=== PATIENT | female | born 1980 | race African-American/Black ===

== ENCOUNTER 2018-06-18 03:06 | Inpatient (IN) | payer OTHER ==
[~2018-06-18 03:06] MED LIST: Morphine PF 1 MG/ML Amp IVPUSH ONE; Ondansetron 4 MG/2 ML SDV IVPUSH ONE; Oxytocin 10 Units/1 ML SDV IV ONE; Phenylephrine/Normal Saline 100 MCG/ML 10 ML Syringe IV ONE; ceFAZolin 2 GM in Premix Bag 1 BAG IV ONE; ePHEDrine 50 MG/ML SDV IV ONE
[2018-06-18] MEDS ORDERED: Citric Acid/Sodium Citrate Solution 30 ML Cup PO ONE (03:30)
[2018-06-18] MEDS ORDERED: Sodium Chloride 0.9% 2.5 ML Syringe FLUSH PRN (03:30)
[2018-06-18] MEDS ORDERED: Sodium Chloride 0.9% 10 ML Syringe FLUSH PRN (03:30)
[2018-06-18] MEDS ORDERED: Lactated Ringers 1,000 ML IV SCH ×2 (03:30→05:00)
[2018-06-18] MEDS ORDERED: ceFAZolin 2 GM in Premix Bag 1 BAG IV ONE (03:30)
[2018-06-18] MEDS ORDERED: Oxytocin/0.9 % Sodium Chloride 30 UNIT/500 ML BAG IV SCH (03:30)
[2018-06-18] MEDS ORDERED: Octyl 2-Cyanoacrylate 1 Tube ONE (03:59)
--- NOTE | 2018-06-18 03:59 | PCM.LDHP ---
L&D History of Present Illness - General Date of Service: 06/18/18 Admit Problem/Dx: Patient Status Order with Admit Dx/Problem 06/18/18 03:30 Patient Status [ADT] Routine Admission Diagnosis/Problem Admission Diagnosis/Problem - planned Source of Information: Patient History Limitations: Reports: No Limitations - History of Present Illness Improves with: Reports: None Worsens with: Reports: None Associated Symptoms: Reports: N - Related Data Allergies/Adverse Reactions: Allergies Allergy/AdvReac Type Severity Reaction Status Date / Time No Known Allergies Allergy Verified 06/17/18 11:36 Home Medications: Home Meds Vit W-Ca,Fe,FA(<1 mg) [ Vitamins] 1 tab PO DAILY 06/17/18 [ History] H&P Review of Systems - Review of Systems: Review Of Systems: See Below General: Reports: No Symptoms HEENT: Reports: No Symptoms Pulmonary: Reports: No Symptoms Cardiovascular: Reports: No Symptoms Gastrointestinal: Reports: No Symptoms Genitourinary: Reports: No Symptoms Musculoskeletal: Reports: No Symptoms Skin: Reports: No Symptoms Psychiatric: Reports: No Symptoms Neurological: Reports: No Symptoms Hematologic/Lymphatic: Reports: No Symptoms Immunologic: Reports: No Symptoms L&D Exam - Exam Exam: See Below - OB Specific Fundal Height In cm: 38 Contraction Intensity: Moderate Movement: Active Heart Tones: Present Presentation: Vertex - Live Score Live Score Cervix Position: Anterior Live Score Consistency: Soft Live Score Effacement: 51-70% Live Score Dilation: > 5 cm Live Score Infant's Station: -1 ,0 Live Score Total: 11 - Exam General: Alert, Oriented HEENT: PERRLA, Conjunctiva Clear, EACs Clear, EOMI, Hearing Intact, Mucosa Moist & Pender, Nares Patent, Normal Nasal Septum, Posterior Pharynx Clear, TMs Clear Neck: Supple, Trachea Midline Lungs: Clear to Auscultation, Normal Respiratory Effort Cardiovascular: Regular Rate, Regular Rhythm GI/Abdominal Exam: Normal Bowel Sounds, Soft, Non-Tender, No Organomegaly, No Distention, No Abnormal Bruit, No Mass, Pelvis Stable Rectal Exam: Normal Exam, Normal Rectal Tone Genitourinary: Normal external exam, Normal bimanual exam, Normal speculum exam Back Exam: Normal Inspection, Full Range of Motion Extremities: Normal Inspection, Normal Range of Motion, Non-Tender, No Pedal Edema, Normal Capillary Refill Skin: Warm, Dry, Intact Neurological: Cranial Nerves Intact, Reflexes Equal Bilateral Psychiatric: Alert, Normal Affect, Normal Mood - Patient Data Lab Results Last 24 hrs: Laboratory Results - last 24 hr 06/18/18 Range/Units 03:38 WBC 10.38 (4.0-11.0) K/uL RBC 4.64 (4.30-5.90) M/uL Hgb 12.4 (12.0-16.0) g/dL Hct 37.2 (36.0-46.0) % MCV 80.2 (80.0-98.0) fL MCH 26.7 L (27.0-32.0) pg MCHC 33.3 (31.0-37.0) g/dL RDW Std Deviation 41.5 (28.0-62.0) fl RDW Coeff of Juan 14 (11.0-15.0) % Plt Count 128 L (150-400) K/uL MPV 11.50 (7.40-12.00) fL Nucleated RBC % 0.0 /100WBC Nucleated RBCs # 0 K/uL Result Diagrams: 06/18/18 03:38 Problem List Initiated/Reviewed/Updated: Yes Orders Last 24hrs: Active Orders 24 hr Category Date Time Status Patient Status [ADT] Routine ADT 06/18/18 03:30 Active Non Stress Test [RC] PER UNIT ROUTINE Care 06/18/18 03:30 Active Notify Provider Vital Signs [RC] PRN Care 06/18/18 03:30 Active Procedure Site Prep Instruct [RC] ASDIRECTED Care 06/18/18 03:30 Active Up ad Marya [RC] ASDIRECTED Care 06/18/18 03:30 Active Verify Patient Consent Obtain [RC] ASDIRECTED Care 06/18/18 03:30 Active Vital Signs [RC] PER UNIT ROUTINE Care 06/18/18 03:30 Active TYPE AND SCREEN [BBK] Routine Lab 06/18/18 03:38 Received Lactated Ringers [Ringers, Lactated] 1,000 ml Med 06/18/18 03:30 Active IV BOLUS Oxytocin/0.9 % Sodium Chloride [Oxytocin 30 Unit/500 ML Med 06/18/18 03:30 Active -NS] 30 unit in 500 ml IV TITRATE Sodium Chloride 0.9% [Saline Flush] Med 06/18/18 03:30 Active 10 ml FLUSH ASDIRECTED PRN Sodium Chloride 0.9% [Saline Flush] Med 06/18/18 03:30 Active 2.5 ml FLUSH ASDIRECTED PRN ceFAZolin [Ancef] 2 gm Med 06/18/18 03:30 Active Premix Bag 1 bag IV ONETIME Peripheral IV Insertion Adult [OM.PC] Routine Oth 06/18/18 03:30 Ordered Schedule Procedure [COMM] Per Unit Routine Oth 06/18/18 03:30 Ordered Resuscitation Status Routine Resus Stat 06/18/18 03:30 Ordered Medication Orders Cefazolin Sodium/Dextrose 2 gm (/ Premix) 50 mls @ 100 mls/hr IV ONETIME ONE Stop: 06/18/18 03:59 Lactated Ringer's (Ringers, Lactated) 1,000 mls @ 500 mls/hr IV BOLUS FATUMA Last Admin: 06/18/18 03:49 Dose: 999 mls/hr Oxytocin/Sodium Chloride (Oxytocin 30 Unit/500 Ml-Ns) 30 unit in 500 mls @ 250 mls/hr IV TITRATE FATUMA Sodium Chloride (Saline Flush) 10 ml FLUSH ASDIRECTED PRN PRN Reason: Keep Vein Open Sodium Chloride (Saline Flush) 2.5 ml FLUSH ASDIRECTED PRN PRN Reason: Keep Vein Open Assessment/Plan Comment:: Elective repeat C/section in active labor.
--- NOTE | 2018-06-18 04:20 | PCM.PREANE ---
Preanesthetic Assessment - Anesthesia/Transfusion/Family Hx Anesthesia History: Prior Anesthesia Without Reaction Family History of Anesthesia Reaction: No Transfusion History: Unknown - Review of Systems General: No Symptoms Pulmonary: No Symptoms Cardiovascular: No Symptoms Gastrointestinal: No Symptoms Neurological: No Symptoms Other: Reports: None - Physical Assessment NPO Status Date: 06/18/18 NPO Status Time: 01:00 ASA Class: 2E Mental Status: Alert & Oriented x3 Airway Class: Mallampati = 2 Dentition: Reports: Normal Dentition Thyro-Mental Finger Breadths: 2 Mouth Opening Finger Breadths: 2 ROM/Head Extension: Full Lungs: Clear to Auscultation, Normal Respiratory Effort Cardiovascular: Regular Rate, Regular Rhythm - Lab Values: Laboratory Last Values WBC 10.38 K/uL (4.0-11.0) 06/18/18 03:38 RBC 4.64 M/uL (4.30-5.90) 06/18/18 03:38 Hgb 12.4 g/dL (12.0-16.0) 06/18/18 03:38 Hct 37.2 % (36.0-46.0) 06/18/18 03:38 MCV 80.2 fL (80.0-98.0) 06/18/18 03:38 MCH 26.7 pg (27.0-32.0) L 06/18/18 03:38 MCHC 33.3 g/dL (31.0-37.0) 06/18/18 03:38 RDW Std Deviation 41.5 fl (28.0-62.0) 06/18/18 03:38 RDW Coeff of Juan 14 % (11.0-15.0) 06/18/18 03:38 Plt Count 128 K/uL (150-400) L 06/18/18 03:38 MPV 11.50 fL (7.40-12.00) 06/18/18 03:38 Nucleated RBC % 0.0 /100WBC 06/18/18 03:38 Nucleated RBCs # 0 K/uL 06/18/18 03:38 Blood Type AB POSITIVE 06/18/18 03:38 - Allergies Allergies/Adverse Reactions: Allergies Allergy/AdvReac Type Severity Reaction Status Date / Time No Known Allergies Allergy Verified 06/17/18 11:36 - Acknowledgements Anesthesia Type Planned: Spinal (with Duramorph) Pt an Appropriate Candidate for the Planned Anesthesia: Yes Alternatives and Risks of Anesthesia Discussed w Pt/Guardian: Yes Pt/Guardian Understands and Agrees with Anesthesia Plan: Yes PreAnesthesia Questionnaire HEENT History: Reports: None Cardiovascular History: Reports: None Respiratory History: Reports: None Gastrointestinal History: Reports: GERD Genitourinary History: Reports: None JAVA WEB ENGINEER History: Reports: : 4 Para: 2 LMP (Approximate): (2) Musculoskeletal History: Reports: None Neurological History: Reports: None Psychiatric History: Reports: None Endocrine/Metabolic History: Reports: Obesity/BMI 30+ Hematologic History: Reports: Other (See Below) (Sickle Cell trait) Immunologic History: Reports: None Oncologic (Cancer) History: Reports: None Dermatologic History: Reports: None - Infectious Disease History Infectious Disease History: Reports: None - Past Surgical History Female Surgical History: Reports: Oophorectomy (Rt side for Ovarian CA), Other (See Below) ( x 2, 2011, 2014) - HOME MEDS Home Medications: Home Meds Vit W-Ca,Fe,FA(<1 mg) [ Vitamins] 1 tab PO DAILY 06/17/18 [ History] - CURRENT (IN HOUSE) MEDS Current Meds: Current Medications Lactated Ringer's (Ringers, Lactated) 1,000 mls @ 500 mls/hr IV BOLUS FATUMA Last Admin: 06/18/18 03:49 Dose: 999 mls/hr Oxytocin/Sodium Chloride (Oxytocin 30 Unit/500 Ml-Ns) 30 unit in 500 mls @ 250 mls/hr IV TITRATE FATUMA Sodium Chloride (Saline Flush) 10 ml FLUSH ASDIRECTED PRN PRN Reason: Keep Vein Open Sodium Chloride (Saline Flush) 2.5 ml FLUSH ASDIRECTED PRN PRN Reason: Keep Vein Open Discontinued Medications Citric Acid/Sodium Citrate (Bicitra Solution) 30 ml PO ONETIME ONE Stop: 06/18/18 03:31 Last Admin: 06/18/18 03:54 Dose: 30 ml Cefazolin Sodium/Dextrose 2 gm (/ Premix) 50 mls @ 100 mls/hr IV ONETIME ONE Stop: 06/18/18 03:59 Octyl Cyanoacrylate (Dermabond Advance) Confirm Administered Dose 1 applic .ROUTE .STK-MED ONE Stop: 06/18/18 04:00
[2018-06-18] MEDS ORDERED: diphenhydrAMINE 50 MG/ML SDV IVPUSH PRN ×2 (04:22→04:56)
[2018-06-18] MEDS ORDERED: Nalbuphine 10 MG/1 ML Vial IVPUSH PRN (04:22)
[2018-06-18] MEDS ORDERED: Naloxone 0.4 MG/ML Syringe IVPUSH PRN (04:22)
[2018-06-18] MEDS ORDERED: Acetaminophen/oxyCODONE 325-5 MG Tab PO PRN ×2 (04:56)
[2018-06-18] MEDS ORDERED: Lanolin 100% Cream 7 GM Tube TOP PRN (04:56)
[2018-06-18] MEDS ORDERED: Ondansetron 4 MG/2 ML SDV IVPUSH PRN (04:56)
[2018-06-18] MEDS ORDERED: Bisacodyl 10 MG Supp RECTAL PRN (04:56)
--- NOTE | 2018-06-18 05:00 | PCM.OPNOTE ---
- General Post-Op/Procedure Note Date of Surgery/Procedure: 06/18/18 Operative Procedure(s): Repeat C/section. Pre Op Diagnosis: IUP 39+ previous C/Section X2 Post-Op Diagnosis: Same Anesthesia Technique: Spinal Primary Surgeon: Tito Rod EBL in mLs: 600 Complications: None Condition: Good
[2018-06-18] MEDS: Ketorolac 30 MG/ML SDV IVPUSH SCH ×4 (05:25→22:52)
--- NOTE | 2018-06-18 05:28 | PCM.POSTAN ---
POST ANESTHESIA ASSESSMENT - MENTAL STATUS Mental Status: Alert, Oriented - RESPIRATORY Respiratory Status: Respiratory Rate WNL, Airway Patent, O2 Saturation Stable - CARDIOVASCULAR CV Status: Pulse Rate WNL, Blood Pressure Stable - GASTROINTESTINAL GI Status: No Symptoms - PAIN Pain Score: 0 - POST OP HYDRATION Hydration Status: Adequate & Stable
--- NOTE | 2018-06-18 11:21 | OR ---
SURGEON: Tito Rod MD DATE OF PROCEDURE: PREOPERATIVE DIAGNOSES: 1. Intrauterine , 39+ weeks. 2. Previous section x2, in active labor. POSTOPERATIVE DIAGNOSES: 1. Intrauterine , 39+ weeks. 2. Previous section x2, in active labor. OPERATION PERFORMED: Repeat low-transverse section. SEED CLEANER: OR ranjith. MATHEMATICAL ENGINEER: Duglas Richardson MD ANESTHESIA: Spinal, Kim Garcias and Kulwinder. ESTIMATED BLOOD LOSS: 650 mL. COMPLICATIONS: None. FINDINGS: Male fetus. score reported to be 8 and 9. Weight is not available at this time. INDICATION FOR SURGERY: This patient is 38. She is para 2-0-0-2. She has had 2 previous sections in [place]. She is followed in our clinic. She is admitted to Labor and Delivery in active labor. She was dilated 7 to 8 cm with bulging bag before the decision was made to repeat her section. PROCEDURE IN DETAIL: The patient was brought to the OR, properly identified, and after adequate level of spinal anesthesia with a Lamb catheter in the bladder, the patient was prepped and draped in sterile fashion as usual. Time-out was taken and the patient properly identified again and then low-transverse Pfannenstiel skin incision was done. Bonnie's fascia and rectus fascia were opened in direction of the incision. The 2 recti muscles were and the peritoneal cavity was entered. The bladder flap was raised in the usual manner, pushing the bladder away from the lower uterine segment and then low-transverse uterine incision was done and extended manually and fetus was in the vertex position, delivered without any problems and cried immediately. After clamping the cord, the fetus was handed to the recovery operator for resuscitation and later on the score reported to be 8 and 9 and the weight is not available at this time. The placenta delivered spontaneous, complete, and intact and then repair of the lower uterine segment done with 2-0 Vicryl continuous interlocking in 2 layers. Reperitonealization done with 3-0 Vicryl continuous and then the peritoneal cavity evacuated completely from all blood and blood clot and closed with 3-0 Vicryl continuous. The rectus fascia was closed with #1 PDS double strand continuous, the Bonnie's fascia with 3-0 Vicryl continuous and skin closed with skin staple, Insorb, and Dermabond. Instrument and sponge count was correct. The patient tolerated the procedure well, went to recovery room in stable general condition. JOSEPH MONTEMAYOR /[id number]
[2018-06-18] MEDS: Docusate Sodium 100 MG Cap PO SCH ×2 (11:55→22:53)
[2018-06-19] MEDS: Ketorolac 30 MG/ML SDV IVPUSH SCH (05:36)
--- NOTE | 2018-06-19 09:10 | PCM.PNPP ---
- General Info Date of Service: 06/19/18 Admission Dx/Problem (Free Text): Patient Status Order with Admit Dx/Problem 06/18/18 03:30 Patient Status [ADT] Routine Admission Diagnosis/Problem Admission Diagnosis/Problem - planned Functional Status: Reports: Pain Controlled, Tolerating Diet, Ambulating, Urinating - Review of Systems General: Reports: No Symptoms HEENT: Reports: No Symptoms Pulmonary: Reports: No Symptoms Cardiovascular: Reports: No Symptoms Gastrointestinal: Reports: No Symptoms Genitourinary: Reports: No Symptoms Musculoskeletal: Reports: No Symptoms Skin: Reports: No Symptoms Neurological: Reports: No Symptoms Psychiatric: Reports: No Symptoms - Patient Data Vital Signs - Most Recent: Last Vital Signs Temp 36.3 C 06/19/18 08:00 Pulse 97 06/19/18 08:00 Resp 17 06/19/18 08:00 BP 103/61 06/19/18 08:00 Pulse Ox 98 06/19/18 08:00 Weight - Most Recent: 92.986 kg I&O - Last 24 Hours: Intake & Output 06/18/18 06/19/18 06/19/18 22:59 06:59 14:59 Intake Total 950 Output Total 1100 1425 Balance -150 -1425 Lab Results - Last 24 Hours: Laboratory Results - last 24 hr 06/19/18 Range/Units 05:19 Hgb 9.9 L (12.0-16.0) g/dL Hct 29.9 L (36.0-46.0) % Med Orders - Current: Current Medications Bisacodyl (Dulcolax) 10 mg RECTAL ONETIME PRN PRN Reason: Constipation Diphenhydramine HCl (Benadryl) 25 mg IVPUSH Q6H PRN PRN Reason: Itching or Nausea Docusate Sodium (Colace) 100 mg PO BID [facility] Last Admin: 06/18/18 22:53 Dose: 100 mg Emollient Ointment (Lansinoh Hpa) 0 gm TOP ASDIRECTED PRN PRN Reason: Sore Nipples Lactated Ringer's (Ringers, Lactated) 1,000 mls @ 500 mls/hr IV BOLUS [facility] Last Admin: 06/18/18 03:49 Dose: 999 mls/hr Oxytocin/Sodium Chloride (Oxytocin 30 Unit/500 Ml-Ns) 30 unit in 500 mls @ 250 mls/hr IV TITRATE [facility] Lactated Ringer's (Ringers, Lactated) 1,000 mls @ 125 mls/hr IV ASDIRECTED [facility] Last Admin: 06/18/18 08:05 Dose: 125 mls/hr Ibuprofen (Motrin) 800 mg PO Q8H PRN PRN Reason: mild pain or fever Ondansetron HCl (Zofran) 4 mg IVPUSH Q4H PRN PRN Reason: Nausea/Vomiting Oxycodone/Acetaminophen (Percocet 325-5 Mg) 1 tab PO Q4H PRN PRN Reason: Pain (moderate 4-6) Oxycodone/Acetaminophen (Percocet 325-5 Mg) 2 tab PO Q4H PRN PRN Reason: Pain (moderate 4-6) Sodium Chloride (Saline Flush) 10 ml FLUSH ASDIRECTED PRN PRN Reason: Keep Vein Open Sodium Chloride (Saline Flush) 2.5 ml FLUSH ASDIRECTED PRN PRN Reason: Keep Vein Open Discontinued Medications Citric Acid/Sodium Citrate (Bicitra Solution) 30 ml PO ONETIME ONE Stop: 06/18/18 03:31 Last Admin: 06/18/18 03:54 Dose: 30 ml Diphenhydramine HCl (Benadryl) 25 mg IVPUSH Q4H PRN PRN Reason: Itching Stop: 06/19/18 04:22 Cefazolin Sodium/Dextrose 2 gm (/ Premix) 50 mls @ 100 mls/hr IV ONETIME ONE Stop: 06/18/18 03:59 Last Admin: 06/19/18 08:27 Dose: Not Given Ketorolac Tromethamine (Toradol) 30 mg IVPUSH Q6H [facility] Stop: 06/19/18 05:01 Last Admin: 06/19/18 05:36 Dose: 30 mg Nalbuphine HCl (Nubain) 5 mg IVPUSH Q3H PRN PRN Reason: Pruritis Stop: 06/19/18 04:22 Naloxone HCl (Narcan) 0.1 mg IVPUSH ONETIME PRN PRN Reason: Respiratory Depression Stop: 06/19/18 04:22 Octyl Cyanoacrylate (Dermabond Advance) Confirm Administered Dose 1 applic .ROUTE .STK-MED ONE Stop: 06/18/18 04:00 - Infant Interaction Infant Disposition, : in Room with Family Infant Interaction: Holding Infant Infant Feeding: Breastfed Infant; Nursed Well - Recovery Exam Fundal Tone: Firm Fundal Level: At Umbilicus Fundal Placement: Midline Lochia Amount: Scant Lochia Color: Rubra/Red Perineum Description: Intact, Minimal Bruising/Swelling Episiotomy/Laceration: None Bladder Status: Voiding Urinary Elimination: Voided - Exam General: Alert, Oriented, Cooperative, No Acute Distress Lungs: Clear to Auscultation, Normal Respiratory Effort Cardiovascular: Regular Rate, Regular Rhythm, No Murmurs GI/Abdominal Exam: Normal Bowel Sounds, Soft, Non-Tender, No Organomegaly, No Distention, No Abnormal Bruit, No Mass, Pelvis Stable Extremities: Normal Inspection, Normal Range of Motion, Non-Tender, No Pedal Edema, Normal Capillary Refill Skin: Warm, Dry, Intact Wound/Incisions: Healing Well, No Drainage Neurological: No New Focal Deficit, Normal Gait, Normal Speech, Normal Tone, Strength Equal Bilateral Psy/Mental Status: Alert, Normal Affect, Normal Mood - Problem List & Annotations (1) Supervision of normal IUP (intrauterine ) in multigravida SNOMED Code(s): 711440557, 690003530, 830118387 Code(s): Z34.80 - ENCOUNTER FOR SUPRVSN OF NORMAL , UNSP TRIMESTER Status: Acute Priority: High Current Visit: Yes Qualifiers: Trimester: third trimester Qualified Code(s): Z34.83 - Encounter for supervision of other normal , third trimester (2) delivery delivered SNOMED Code(s): 435894267 Code(s): O82 - ENCOUNTER FOR DELIVERY WITHOUT INDICATION Status: Acute Priority: High Current Visit: Yes - Problem List Review Problem List Initiated/Reviewed/Updated: Yes - Assessment Assessment:: PPD#1 VSS, AF, FF -2bu, lochia small, incision healing well, no erythema or drainage. Stable - Plan Plan:: Elective repeat C/section in active labor. PPD#1 Continue pp plan of care
[2018-06-19] MEDS: Docusate Sodium 100 MG Cap PO SCH ×2 (10:49→23:50)
[2018-06-19] MEDS ORDERED: Ibuprofen 800 MG Tab PO PRN (11:00)
--- NOTE | 2018-06-20 08:16 | PCM.DCSUM1 ---
Discharge Summary - Hospital Course Free Text/Narrative:: Discharge home with . Follow up in 1 week for incision check and 6 weeks for post or sooner if needed. Diagnosis: Stroke: No - Discharge Data Discharge Date: 06/20/18 Discharge Disposition: Home, Self-Care 01 Condition: Good - Discharge Diagnosis/Problem(s) (1) Supervision of normal IUP (intrauterine ) in multigravida SNOMED Code(s): 964411764, 937375939, 212441483 ICD Code: Z34.80 - ENCOUNTER FOR SUPRVSN OF NORMAL , UNSP TRIMESTER Status: Acute Priority: High Current Visit: Yes Qualifiers: Trimester: third trimester Qualified Code(s): Z34.83 - Encounter for supervision of other normal , third trimester (2) delivery delivered SNOMED Code(s): 615691511 ICD Code: O82 - ENCOUNTER FOR DELIVERY WITHOUT INDICATION Status: Acute Priority: High Current Visit: Yes - Patient Summary/Data Operative Procedure(s) Performed: Repeat C/section. - Patient Instructions Diet: Usual Diet as Tolerated Activity: As Tolerated, No Strenuous Activities, Rest and Relax Today Driving: May Drive Today Showering/Bathing: May Shower Wound/Incision Care: Keep Operative Site/Wound Site Clean and Dry Notify Provider of: Fever, Increased Pain, Swelling and Redness, Drainage, Nausea and/or Vomiting Other/Special Instructions: Discharge home with infant. Follow up in 1 week for incision check and 6 weeks for post or sooner if needed. - Discharge Plan *PRESCRIPTION DRUG MONITORING PROGRAM REVIEWED*: Not Applicable *COPY OF PRESCRIPTION DRUG MONITORING REPORT IN PATIENT ЕКАТЕРИНА: Not Applicable Home Medications: Home Meds Vit W-Ca,Fe,FA(<1 mg) [ Vitamins] 1 tab PO DAILY 06/17/18 [ History] - General Info Date of Service: 06/20/18 Admission Dx/Problem (Free Text: Patient Status Order with Admit Dx/Problem 06/18/18 03:30 Patient Status [ADT] Routine Admission Diagnosis/Problem Admission Diagnosis/Problem - planned Functional Status: Reports: Pain Controlled, Tolerating Diet, Ambulating, Urinating - Review of Systems General: Reports: No Symptoms HEENT: Reports: No Symptoms Pulmonary: Reports: No Symptoms Cardiovascular: Reports: No Symptoms Gastrointestinal: Reports: No Symptoms Genitourinary: Reports: No Symptoms Musculoskeletal: Reports: No Symptoms Skin: Reports: No Symptoms Neurological: Reports: No Symptoms Psychiatric: Reports: No Symptoms - Patient Data Vitals - Most Recent: Last Vital Signs Temp 36 C 06/19/18 20:00 Pulse 90 06/19/18 20:00 Resp 16 06/19/18 20:00 BP 110/67 06/19/18 20:00 Pulse Ox 98 06/19/18 20:00 Weight - Most Recent: 92.986 kg Med Orders - Current: Current Medications Bisacodyl (Dulcolax) 10 mg RECTAL ONETIME PRN PRN Reason: Constipation Diphenhydramine HCl (Benadryl) 25 mg IVPUSH Q6H PRN PRN Reason: Itching or Nausea Docusate Sodium (Colace) 100 mg PO BID [facility] Last Admin: 06/19/18 23:50 Dose: Not Given Emollient Ointment (Lansinoh Hpa) 0 gm TOP ASDIRECTED PRN PRN Reason: Sore Nipples Lactated Ringer's (Ringers, Lactated) 1,000 mls @ 500 mls/hr IV BOLUS [facility] Last Admin: 06/18/18 03:49 Dose: 999 mls/hr Oxytocin/Sodium Chloride (Oxytocin 30 Unit/500 Ml-Ns) 30 unit in 500 mls @ 250 mls/hr IV TITRATE [facility] Lactated Ringer's (Ringers, Lactated) 1,000 mls @ 125 mls/hr IV ASDIRECTED [facility] Last Admin: 06/18/18 08:05 Dose: 125 mls/hr Ibuprofen (Motrin) 800 mg PO Q8H PRN PRN Reason: mild pain or fever Last Admin: 06/19/18 20:46 Dose: 800 mg Ondansetron HCl (Zofran) 4 mg IVPUSH Q4H PRN PRN Reason: Nausea/Vomiting Oxycodone/Acetaminophen (Percocet 325-5 Mg) 1 tab PO Q4H PRN PRN Reason: Pain (moderate 4-6) Oxycodone/Acetaminophen (Percocet 325-5 Mg) 2 tab PO Q4H PRN PRN Reason: Pain (moderate 4-6) Last Admin: 06/19/18 20:46 Dose: 2 tab Sodium Chloride (Saline Flush) 10 ml FLUSH ASDIRECTED PRN PRN Reason: Keep Vein Open Sodium Chloride (Saline Flush) 2.5 ml FLUSH ASDIRECTED PRN PRN Reason: Keep Vein Open Discontinued Medications Citric Acid/Sodium Citrate (Bicitra Solution) 30 ml PO ONETIME ONE Stop: 06/18/18 03:31 Last Admin: 06/18/18 03:54 Dose: 30 ml Diphenhydramine HCl (Benadryl) 25 mg IVPUSH Q4H PRN PRN Reason: Itching Stop: 06/19/18 04:22 Cefazolin Sodium/Dextrose 2 gm (/ Premix) 50 mls @ 100 mls/hr IV ONETIME ONE Stop: 06/18/18 03:59 Last Admin: 06/19/18 08:27 Dose: Not Given Ketorolac Tromethamine (Toradol) 30 mg IVPUSH Q6H [facility] Stop: 06/19/18 05:01 Last Admin: 06/19/18 05:36 Dose: 30 mg Nalbuphine HCl (Nubain) 5 mg IVPUSH Q3H PRN PRN Reason: Pruritis Stop: 06/19/18 04:22 Naloxone HCl (Narcan) 0.1 mg IVPUSH ONETIME PRN PRN Reason: Respiratory Depression Stop: 06/19/18 04:22 Octyl Cyanoacrylate (Dermabond Advance) Confirm Administered Dose 1 applic .ROUTE .STK-MED ONE Stop: 06/18/18 04:00 - Exam General: Reports: Alert, Oriented, Cooperative, No Acute Distress Lungs: Reports: Clear to Auscultation, Normal Respiratory Effort Cardiovascular: Reports: Regular Rate, Regular Rhythm, No Murmurs GI/Abdominal Exam: Normal Bowel Sounds, Soft, Non-Tender, No Organomegaly, No Distention, No Abnormal Bruit, No Mass, Pelvis Stable (Female) Exam: Deferred, Vaginal Bleeding Rectal (Female) Exam: Deferred Back Exam: Reports: Normal Inspection, Full Range of Motion Extremities: Normal Inspection, Normal Range of Motion, Non-Tender, No Pedal Edema, Normal Capillary Refill Skin: Reports: Warm, Dry, Intact Wound/Incisions: Reports: Healing Well, No Drainage Neurological: Reports: No New Focal Deficit, Normal Speech, Normal Tone, Strength Equal Bilateral Psy/Mental Status: Reports: Alert, Normal Affect, Normal Mood
[2018-06-20] MEDS: Docusate Sodium 100 MG Cap PO SCH (09:45)
== END 2018-06-20 12:20 | disposition home or self-care (01) | DRG 788 ==
LOC: MW.OBCHECK 03:06 → MW.OB 03:08 → MW.OBCHECK 03:30 → MW.OB 15:51
PROVIDERS: ADMIT Obstetrics & Gynecology; ATTEND Obstetrics & Gynecology
PROC: 10D00Z1 Extraction of Products of Conception, Low, Open Approach (ICD-10-PCS; principal; 2018-06-18)
DX: O34.211 Maternal care for low transverse scar from previous cesarean delivery (principal); Z3A.39 39 weeks gestation of pregnancy; Z37.0 Single live birth
CPT/HCPCS: 36415; 59025; 85014; 85018; 85027; 86850; 86900; 86901; 90686; A9270-GY; J0690; J1885; J2274; J2370; J2405; J2590; J7120

== ENCOUNTER 2019-08-02 20:10 | Emergency (ER) | payer OTHER, SELFPAY ==
--- NOTE | 2019-08-02 20:17 | EDM.PDOC ---
ED HPI GENERAL MEDICAL PROBLEM - General Chief Complaint: Upper Extremity Injury/Pain Stated Complaint: LT HAND HURTS Time Seen by Provider: 08/02/19 20:12 - History of Present Illness INITIAL COMMENTS - FREE TEXT/NARRATIVE: HISTORY AND PHYSICAL: History of present illness: Patient 39-year-old black female presents 1 day status post fall which injured her left hand and wrist she denies any other trauma concern or other complaints Review of systems: As per history of present illness and below otherwise all systems reviewed and negative. Past medical history: As per history of present illness and as reviewed below otherwise noncontributory. Surgical history: As per history of present illness and as reviewed below otherwise noncontributory. Social history: No reported history of drug or alcohol abuse. Family history: As per history of present illness and as reviewed below otherwise noncontributory. Physical exam: HEENT: Atraumatic, normocephalic, pupils reactive, negative for conjunctival pallor or scleral icterus, mucous membranes moist, throat clear, neck supple, nontender, trachea midline. Lungs: Clear to auscultation, breath sounds equal bilaterally, chest nontender. Heart: S1S2, regular, negative for clicks, rubs, or JVD. Abdomen: Soft, nondistended, nontender. Negative for masses or hepatosplenomegaly. Negative for costovertebral tenderness. Pelvis: Stable nontender. Genitourinary: Deferred. Rectal: Deferred. Extremities: Left hand and wrist are noted be swollen with tenderness across the dorsal aspect is not well localized she has limited range of motion secondary to pain CMS in neurovascular exam is unremarkable Neuro: Awake, alert, oriented. Cranial nerves II through XII unremarkable. Cerebellum unremarkable. Motor and sensory unremarkable throughout. Exam nonfocal. Diagnostics: X-ray left wrist/hand Therapeutics: Long-arm Volar splint left upper extremity with sling Impression: #1 acute left hand/wrist injury Definitive disposition and diagnosis as appropriate pending reevaluation and review of above. left hand Pain Score (Numeric/FACES): 8 - Related Data Allergies Allergy/AdvReac Type Severity Reaction Status Date / Time No Known Allergies Allergy Verified 08/02/19 21:04 Home Meds: Home Meds . [No Known Home Meds] 08/02/19 [History] Past Medical History HEENT History: Reports: None Cardiovascular History: Reports: None Respiratory History: Reports: None Gastrointestinal History: Reports: GERD Genitourinary History: Reports: None [employer]IC[employer] History: Reports: Musculoskeletal History: Reports: None Neurological History: Reports: None Psychiatric History: Reports: None Endocrine/Metabolic History: Reports: Obesity/BMI 30+ Hematologic History: Reports: Other (See Below) (Sickle Cell trait) Immunologic History: Reports: None Oncologic (Cancer) History: Reports: None Dermatologic History: Reports: None - Infectious Disease History Infectious Disease History: Reports: None - Past Surgical History Female Surgical History: Reports: Oophorectomy (Rt side for Ovarian CA), Other (See Below) ( x 2, 2011, 2014) Social & Family History - Family History Family Medical History: Noncontributory - Caffeine Use Caffeine Use: Reports: None Review of Systems - Review of Systems Review Of Systems: Comprehensive ROS is negative, except as noted in HPI. ED EXAM, GENERAL - Physical Exam Exam: See Below (See dictation) Course - Vital Signs Text/Narrative:: Case was discussed with Dr. Nelson we did discuss x-ray findings including intra- articular extension slight impaction of this distal transverse radial fracture. He agrees with long-arm pulse moldable see patient tomorrow or Wednesday in clinic. Last Recorded V/S: Last Vital Signs Temp 36.2 C 08/02/19 21:04 Pulse 100 08/02/19 21:04 Resp 18 08/02/19 21:04 BP 130/92 H 08/02/19 21:04 Pulse Ox 99 08/02/19 21:04 Departure - Departure Time of Disposition: 21:33 Disposition: Home, Self-Care 01 Condition: Good Clinical Impression: Distal radius fracture - Discharge Information Referrals: PCP,None [Primary Care Provider] - Forms: ED Department Discharge Additional Instructions: The following information is given to patients seen in the emergency department who are being discharged to home. This information is to outline your options for follow-up care. We provide all patients seen in our emergency department with a follow-up referral. The need for follow-up, as well as the timing and circumstances, are variable depending upon the specifics of your emergency department visit. If you don't have a primary care physician on staff, we will provide you with a referral. We always advise you to contact your personal physician following an emergency department visit to inform them of the circumstance of the visit and for follow-up with them and/or the need for any referrals to a consulting specialist. The emergency department will also refer you to a specialist when appropriate. This referral assures that you have the opportunity for followup care with a specialist. All of these measure are taken in an effort to provide you with optimal care, which includes your followup. Under all circumstances we always encourage you to contact your private physician who remains a resource for coordinating your care. When calling for followup care, please make the office aware that this follow-up is from your recent emergency room visit. If for any reason you are refused follow-up, please contact the [facility] emergency department at and asked to speak to the emergency department charge nurse. Specialty Care - [facility] [address], [address] [place] [address] Pulse mold sling as directed hydrocodone as prescribed follow-up orthopedic surgery tomorrow return as needed as discussed
--- NOTE | 2019-08-02 20:54 | CR ---
INDICATION: Fall TECHNIQUE: Three views left wrist COMPARISON: None FINDINGS: Bones: Impacted transverse distal radius fracture with probable nondisplaced intra-articular component. Joint spaces: Unremarkable. Soft tissues: Soft tissue edema adjacent to the distal radius and ulna. IMPRESSION: Impacted transverse distal radius fracture with probable nondisplaced intra-articular component. Dictated by Clemente Jones MD @ 08/02/2019 8:53:11 PM Dictated by: Clemente Jones MD @ 08/02/2019 20:53:19 (Electronically Signed)
--- NOTE | 2019-08-02 21:00 | CR ---
INDICATION: Fall TECHNIQUE: Three views left hand COMPARISON: None FINDINGS: Bones: Transverse impacted distal radius fracture. Joint spaces: Unremarkable. Soft tissues: Unremarkable. IMPRESSION: Transverse impacted distal radius fracture. Dictated by Clemente Jones MD @ 08/02/2019 8:58:19 PM Dictated by: Clemente Jones MD @ 08/02/2019 20:59:09 (Electronically Signed)
== END 2019-08-02 22:27 | disposition home or self-care (01) ==
LOC: MW.ED 20:10
DX: S52.502A Unspecified fracture of the lower end of left radius, initial encounter for closed fracture (principal); W19.XXXA Unspecified fall, initial encounter
CPT/HCPCS: 29105; 73110-26-LT; 73110-LT; 73130-26-LT; 73130-LT; 99283-25

== ENCOUNTER 2024-11-11 21:02 | Emergency (ER) | payer OTHER ==
[2024-11-11] MEDS: Orphenadrine 60 MG/2 ML Inj IM ONE (22:00)
[2024-11-11] MEDS: Ketorolac 60 MG/2 ML SDV IM ONE (22:00)
== END 2024-11-11 23:58 | disposition home or self-care (01) ==
LOC: MW.ED 21:02
DX: S39.012A Strain of muscle, fascia and tendon of lower back, initial encounter (principal); S29.012A Strain of muscle and tendon of back wall of thorax, initial encounter; Z79.899 Other long term (current) drug therapy; V49.49XA Driver injured in collision with other motor vehicles in traffic accident, initial encounter; Y93.89 Activity, other specified
CPT/HCPCS: 72070; 72100; 96372; 99284; J1885; J2360